=== PATIENT | female | born 1950 | race Caucasian/White ===

== ENCOUNTER 2021-09-18 19:03 | Emergency (ER) | payer OTHER, SELFPAY ==
[2021-09-18 19:04] VITALS: BP 159/71; PULSE 86; RESP 16; TEMP 36.1; O2SAT 100; BMI 20.1
[2021-09-18 19:21] VITALS: BP 157/71; PULSE 86; RESP 16; TEMP 35.9; O2SAT 100
--- NOTE | 2021-09-18 19:35 | EKG12_ITS ---
Test Reason : DYSRHYTHMIA Blood Pressure : / mmHG Vent. Rate : 091 BPM Atrial Rate : 091 BPM P-R Int : 192 ms QRS Dur : 100 ms QT Int : 384 ms P-R-T Axes : 078 041 040 degrees QTc Int : 472 ms Normal sinus rhythm Biatrial enlargement Nonspecific ST abnormality Abnormal ECG Confirmed by TARIK CHING, KENNEY ([id number]), department editor SANTY JEAN ([id number]) on 09/21/2021 11:48:03 AM Referred By: AC Confirmed By:KENNEY MONTANEZ MD
--- NOTE | 2021-09-18 19:36 | ED.VIS.DYS ---
HPI History of Present Illness Chief Complaint: Shortness of Breath Narrative Narrative: Patient presents with her because of shortness of breath that she has had for the last few weeks. She denies any fevers or chills. No cough. No swelling of her legs. No chest tightness. States that she felt short of breath but it was worse today. She actually went for a walk which made her shortness of breath better. She denies any nausea or vomiting. No diaphoresis. No other symptoms. Patient also denies any significant past medical history. [facility] Medical History Mitral valve prolapse Allergy/AdvReac Type Severity Reaction Status Date / Time No Known Allergies Allergy Verified 09/18/21 19:05 Surgical History H/O: section H/O: hysterectomy Social History Smoking Status: Never smoker ROS ROS ED ROS Narrative Constitutional: No fever, no chills. HEENT: No sore throat. No neck pain. No loss of vision. No rhinorrhea. Cardiovascular: No chest pain. No palpitations. No pedal edema. Respiratory: No cough, positive constant shortness of breath. Abdominal: No abdominal pain. No nausea. No vomiting. Genitourinary: No dysuria. No hematuria. Musculoskeletal: No myalgias. No arthralgias. Neurologic: No headaches. No dizziness. No lightheadedness. Skin: No rash. No change in color. Psychiatric: No depression. No anxiety. EXAM Physical Exam Narrative Exam Narrative: Afebrile. Vital signs noted. HEENT: Normocephalic. Atraumatic. PERRL, EOMI. Neck soft and supple. No point tenderness or step off. Cardiovascular: Regular rate and rhythm. No murmurs, rubs, or gallops appreciated. Respiratory: No tachypnea. Lungs clear to auscultation bilaterally. Gastrointestinal: Abdomen soft, nontender, with normoactive bowel sounds. No rebound or guarding. Neurological: Awake. Alert. Nonfocal, nonlateralizing. Skin: No rash. Normal color. No pallor. Musculoskeletal: No pedal edema. Full range of motion extremities. Const Vital Signs: 09/18/21 19:04 09/18/21 19:21 Temperature 97 F L 96.6 F L Temperature Source Temporal Temporal Pulse Rate 86 86 Respiratory Rate 16 16 Respiratory Effort Short of Breath Respiratory Depth Normal Respiratory Pattern Normal Blood Pressure 159/71 H 157/71 H Blood Pressure Mean 100 99 Pulse Ox 100 100 Oxygen Delivery Method Room Air MDM MDM MDM Narrative Medical decision making narrative: Comprehensive work-up was pursued. EKG demonstrates normal sinus rhythm at 91 bpm without ectopy or acute ST changes. She has normal CBC except hemoglobin 11.8, hematocrit 35.9. Platelet count is normal. She has a slightly low potassium of 3.4 which was replaced orally. Electrolytes otherwise unremarkable. With over 2 weeks of constant shortness of breath, her troponin is normal at 6. Her BNP is normal at 32.9. Pulse ox is 100% on room air. I feel she be discharged safely home with follow-up to her primary care physician. Return instructions were reviewed. Disposition is discharged home in stable condition. Lab Data Labs: Laboratory Results - last 24 hr 09/18/21 09/18/21 09/18/21 19:40 19:40 19:40 WBC 4.6 RBC 4.12 L Hgb 11.8 L Hct 35.9 L MCV 87.1 MCH 28.6 MCHC 32.9 RDW Std Deviation 45.3 H RDW Coeff of [place] 14.2 Plt Count 189 MPV 9.5 Immature Gran % (Auto) 0.000 Neut % (Auto) 47.7 Lymph % (Auto) 37.0 [place] % (Auto) 11.8 H Eos % (Auto) 2.8 Baso % (Auto) 0.7 Absolute Neuts (auto) 2.2 Absolute Lymphs (auto) 1.70 Nucleated RBC % 0 Sodium 139 Potassium 3.4 L Chloride 106 Carbon Dioxide 27.0 Anion Gap 6 BUN 13 Creatinine 0.69 Estim Creat Clear Calc 43.93 Est GFR (MDRD) Af Amer 108 Est GFR (MDRD) Non-Af 90 BUN/Creatinine Ratio 18.9 Glucose 146 H Calcium 9.1 Troponin I High Sens 6 B-Natriuretic Peptide 32.9 Radiography Diagnostic Testing: Clinical Impression(s) from Imaging Studies Chest X-Ray 09/18/21 19:54 IMPRESSION: No acute radiographic abnormalities. COPD. Electronically Signed: Zachariah Brooks MD at 20:25 EST Tel , Service support , Discharge Plan Triage Chief Complaint: Shortness of Breath ED Provider: Ruddy Vega Dx/Rx/DC Orders Clinical Impression: SOB (shortness of breath), Hypokalemia Instructions: ED Dyspnea, ED Hypokalemia Primary Care Provider: Eleazar Mcdonald Referrals: Eleazar Mcdonald DO [Primary Care Provider] - 09/25/21 Disposition Disposition: Home, Self Care
--- NOTE | 2021-09-18 19:54 | RAD_ITS ---
INDICATION: Shortness of breath EXAMINATION/TECHNIQUE: X-RAY - XR Chest 1 View COMPARISON: None. FINDINGS: Hyperinflated lungs. The lungs are otherwise clear. Tortuous and calcified thoracic aorta. The heart is mildly enlarged. No pleural effusion or pneumothorax. Degenerative changes of the thoracic spine. RAD/Chest 1 View (Portable) IMPRESSION: No acute radiographic abnormalities. COPD. Electronically Signed: Zachariah Brooks MD at 20:25 EST Tel , Service support ,
[2021-09-18 19:58] LABS: Absolute Neutrophil Count 2.2 X10^3/uL (2.0-7.7); Basophil# 0.03 X10^3/uL; Basophil% 0.7 % (0-1); Eosinophil# 0.13 X10^3/uL; Eosinophils% 2.8 % (0-5); Hematocrit 35.9 % (37-47); Hemoglobin 11.8 g/dL (12.0-15.0); Mean Corp Hgb Conc 32.9 g/dL (32-36); Mean Corpuscular Hgb 28.6 pg (27.0-32.0); Mean Corpuscular Volume 87.1 fL (81-99); Mean Platelet Vol. 9.5 fl (6.2-12.0); Monocyte# 0.54 X10^3/uL; Monocyte% 11.8 % (0-10); NRBC Flagged by Analyzer 0 % (0-5); Neutrophil # 2.19 X10^3/uL (2.7-7.7); Neutrophil % 47.7 % (47-70); Platelet Count 189 K/mm3 (150-450); RBC Distribution Width CV 14.2 % (11.6-14.6); RBC Distribution Width SD 45.3 fl (35.1-43.9); Red Blood Count 4.12 M/mm3 (4.2-5.4); White Blood Count 4.6 K/mm3 (4.4-11.0)
[2021-09-18 20:13] LABS: BNP,B-Type NATRIURETIC PEPTIDE 32.9 pg/mL (0-100)
[2021-09-18 20:15] LABS: Anion Gap 6 (5-15); BUN 13 mg/dL (7-18); BUN/Creat Ratio 18.9 RATIO (10-20); Calcium,Total 9.1 mg/dL (8.5-10.1); Chloride 106 mmol/L (98-107); Creatinine, Serum 0.69 mg/dL (0.55-1.02); EST Glomerular Filtration Rate 90 mL/min (>60); Est Glom Filt Rate - Afr Amer 108 mL/min (>60); Estimated Creatinine Clearance 43.93 ml/min; Glucose 146 mg/dL (74-106); Potassium 3.4 mmol/L (3.5-5.1); Sodium Level 139 mmol/L (136-145); Troponin-I HS 6 pg/mL (3.0-54.0)
[2021-09-18 21:10] VITALS: BP 140/72; PULSE 68; RESP 12; TEMP 37; O2SAT 99
[2021-09-18] MEDS: Potassium Chloride Oral Tablet 20 MEQ 40 MEQ PO (21:16)
== END 2021-09-18 21:17 | disposition home or self-care (01) ==
PROVIDERS: Emergency Provider Emergency Medicine; PCP Family Medicine
DX: E87.6 Hypokalemia (principal); R06.02 Shortness of breath
CPT/HCPCS: 71045; 80048; 83880; 84484; 85025; 93005; 99285

== ENCOUNTER → 2025-04-24 | Outpatient (CLI) | payer OTHER, SELFPAY ==
[2025-04-24 11:16] LABS: Hematocrit 36.9 % (37-47); Hemoglobin 12.2 g/dL (12.0-15.0); Mean Corp Hgb Conc 33.1 g/dL (32-36); Mean Corpuscular Hgb 28.7 pg (27.0-32.0); Mean Corpuscular Volume 86.8 fL (81-99); Mean Platelet Vol. 9.7 fl (6.2-12.0); Platelet Count 177 K/mm3 (150-450); RBC Distribution Width CV 13.6 % (11.6-14.6); RBC Distribution Width SD 43.2 fl (35.1-43.9); Red Blood Count 4.25 M/mm3 (4.2-5.4); White Blood Count 3.7 K/mm3 (4.4-11.0)
[2025-04-24 12:29] LABS: ALB/GLOB Ratio 1.6 RATIO (0.9-2.4); AST(SGOT) 28 U/L (<=31); Alanine Aminotransfer ALT/SGPT 9 U/L (<=34); Albumin, Serum 4.5 g/dL (3.4-4.8); Alkaline Phosphatase 70 U/L (35-104); Anion Gap 10 (5-15); BUN 13 mg/dL (4-19); BUN/Creat Ratio 20.3 RATIO (10-20); Calcium,Total 9.8 mg/dL (7.6-11.0); Carbon Dioxide 26.6 mmol/L (21.0-32.0); Chloride 103 mmol/L (98-108); Creatinine, Serum 0.64 mg/dL (0.70-1.20); EST Glomerular Filtration Rate 93 (>60); Globulin 2.8 g/dL (2.2-4.2); Glucose 103 mg/dL (70-99); Potassium 4.2 mmol/L (3.3-5.1); Protein, Total 7.3 g/dL (5.9-8.4); Sodium Level 139 mmol/L (133-145); Total Bilirubin 0.41 mg/dL (0.00-1.30)
== END | disposition home or self-care (01) ==
PROVIDERS: PCP Nurse Practitioner Family; Referring Provider Internal Medicine Cardiovascular Disease; Visit Provider Internal Medicine Cardiovascular Disease
DX: R06.02 Shortness of breath (principal); I34.1 Nonrheumatic mitral (valve) prolapse; R00.2 Palpitations
CPT/HCPCS: 36415; 80053; 84443; 85027

== ENCOUNTER → 2025-05-09 | Outpatient (CLI) | payer SELFPAY, OTHER | END | disposition home or self-care (01) | LOC: CVS 14:58 | PROVIDERS: PCP Nurse Practitioner Family; Referring Provider Internal Medicine Cardiovascular Disease; Visit Provider Internal Medicine Cardiovascular Disease | DX: R06.02 Shortness of breath (principal); I34.1 Nonrheumatic mitral (valve) prolapse | CPT/HCPCS: 93306 ==